=== PATIENT | male | born 1960 | race Caucasian/White ===

== ENCOUNTER → 2019-06-10 13:58 | Outpatient (REF) | payer OTHER, SELFPAY | LOC: ANHLAB 13:58 | PROVIDERS: PCP Family Medicine; Visit Provider Nurse Practitioner | DX: C44.329 Squamous cell carcinoma of skin of other parts of face (principal) | CPT/HCPCS: 88305 ==

== ENCOUNTER → 2019-07-14 09:27 | Outpatient (REF) | payer OTHER, SELFPAY | LOC: ANHLAB 09:27 | PROVIDERS: PCP Family Medicine; Visit Provider Nurse Practitioner | DX: C44.329 Squamous cell carcinoma of skin of other parts of face (principal) | CPT/HCPCS: 88305; 88331 ==

== ENCOUNTER 2024-08-25 01:03 | Emergency (ER) | payer OTHER, SELFPAY ==
[2024-08-25] VITALS (9 sets, daily range): BP systolic 120–147; BP diastolic 73–90; PULSE 72–84; RESP 11–16; TEMP 36.5–36.7; O2SAT 97–99
--- NOTE | ~2024-08-25 | CT_ITS ---
Noncontrast CT scan of the right hip CLINICAL HISTORY: Status post fall technique: Axial noncontrast imaging of the right hip was performe d. Sagittal and coronal reformatted images were constructed. Dose reduction technique was used on thi s scan by utilizing automated exposure control and iterative reconstruction technique. The dose-lengt h product (DLP) was 144.99 mGy-cm. Findings: There is an acute, transverse, nondisplaced fracture isolated to the superior portion of th e right greater trochanter (coronal image 54-56 for best visualization). Orthopedic hardware at the p roximal right humerus related to prior ORIF of remote, healed fracture in this region. Right hip join t space is preserved with minimal degenerative spurring at the right femoral head neck junction. Visualized musculature is unremarkable. No soft tissue mass or hematoma evident. No joint effusion ev ident. There is extensive atherosclerotic calcification of the common femoral and femoral arteries, a s well as the visualized right iliac vessels. IMPRESSION: Acute, transverse, nondisplaced fracture isolated to the superior portion of the right greater trocha nter. Please see details above. Orthopedic hardware at the proximal right ureter from prior ORIF. No soft tissue mass or hematoma seen. Case discussed with Dr. Irving the time of this reading. Extensive atherosclerotic disease, as above. Reviewed, dictated and finalized at location . IMPRESSION: Acute, transverse, nondisplaced fracture isolated to the superior portion of th e right greater trochanter. Please see details above. Orthopedic hardware at the proximal right ureter from prior ORIF. No soft tissue mass or hematoma seen. Case discussed with Dr. Irving the time of this reading. Extensive atherosclerotic disease, as above.
--- NOTE | ~2024-08-25 | XR_ITS ---
AP view of the pelvis and AP and lateral views of the right hip Clinical history: Pain Findings: No acute fracture or dislocation is seen. Status post prior ORIF of the proximal right femu r. Osseous alignment is anatomic. Bilateral hip joint spaces are preserved. There is moderate degener ative change of bilateral SI joints. Soft tissues are unremarkable. Impression: No acute abnormality. Prior ORIF of the proximal right femur. Moderate degenerative change of the bilateral SI joints. Reviewed, dictated and finalized at location . Impression: No acute abnormality. Prior ORIF of the proximal right femur. Moderate degenerative change of the bilateral SI joints.
--- NOTE | ~2024-08-25 | CT_ITS ---
Noncontrast CT scan of the cervical spine Technique: Multiple contiguous axial [address] images of the cervical spine were obtained and rec onstructed in 2D sagittal and coronal planes on the acquisition scanner. Dose reduction technique was used on this scan by utilizing automated exposure control, adjustment of the mA and/or kV according to patient size. The dose-length product (DLP) was 197.19 mGy-cm. Clinical History: Pain Findings: No fractures or dislocations. Unremarkable visualized bony structures. There is moderate to advanced degenerative disc narrowing at C4-C5 and C5-C6. There is bilateral neural foraminal narro wing, right worse than left, at C4-C5 and C5-C6.. No prevertebral soft tissue swelling. Impression: No fracture or subluxation of the cervical spine. Degenerative changes C4-C5 and C5-C6, as detailed above. Reviewed, dictated and finalized at [facility]. Impression: No fracture or subluxation of the cervical spine. Degenerative changes C4-C5 and C5-C6, as detailed above.
--- NOTE | ~2024-08-25 | CT_ITS ---
Non-contrast Head CT History: Status post fall Technique: Axial non-contrast imaging of the brain was performed. Dose reduction technique was used on this scan by utilizing automated exposure control and iterative reconstruction technique. The dose -length product (DLP) was 605.33 mGy-cm. Findings: There is no evidence of intracranial hemorrhage, mass lesion, or acute infarct. Brain par enchyma appears normal. The ventricles and subarachnoid spaces are normal in size. The calvarium ap pears normal. The visualized paranasal sinuses and mastoid air cells are clear. Impression: No significant abnormality seen. Reviewed, dictated and finalized at location . Impression: No significant abnormality seen.
--- OUTSIDE RECORDS SUMMARY | 2024-08-25 03:09 | XMS_ITS | Encounter Summary ---
Author Organization [facility] Address [address] [place] [address] Care Team Providers Care Licensed Optician Name Role Phone Yohannes Nix MD Primary Care Provider [phone] Encounter Details Date Type Department Care Team (Late st Contact Info) Description 04/25/2023 Lab Requisition [facility] - DermPath Lab [address] [place] [address] Tanner Fairchild MD [address] [place] [address] Social History Tobacco Use Types Packs/Day Years Used Date Smoking Tobacco: Never Assessed Sex and Gender Information Value Date Recorded Sex Assigned at Not on file Legal 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 Gender Identity Not on file Sexual Orientation Not on file documented as of this encounter Plan of Treatment Not on file documented as of this encounter Procedures Procedure Name Priority Date/Time Associated Diagnosis Comments DERMATOPATHOLOGY Routine 04/24/2023 3:33 AM SECURITY NURSE documented in this encounter Results * DERMATOPATHOLOGY (04/24/2023 3:33 AM SECURITY NURSE) Case Report Dermatopathology Report Case: [id number] Authorizing Provider: Tanner Fairchild MD Collected: 04/24/2023 03:33 AM Ordering Location: [facility] Received: 04/25/2023 09:53 AM Pathologist: Cammy Guerrier MD Specimen: Skin, left religious 2:26 PM SECURITY NURSE DERMATOPATHOLOGY LABORATORY Final Diagnosis Specimen A. 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 Path# [id number] 2:26 PM [facility] DERMATOPATHOLOGY LABORATORY Gross Description Specimen A: Received is one formalin filled container labeled with the patient's name and designated left religious. The specimen consists of a shave biopsy measuring 6x5x2 mm. Jar 0. 2:26 PM [facility] DERMATOPATHOLOGY LABORATORY Microscopic Description Specimen A. SKIN, left religious: The epidermis shows parakeratosis, full thickness disorderly maturation of keratinocytes, mitoses at different levels, and dyskeratotic cells. In some foci, there is loss of cohesion between the neoplastic cells, as well as individual dyskeratotic cells that lack intercellular bridges. The lesion extends to the base of the biopsy. COMMENT: An invasive squamous cell carcinoma cannot be ruled out. 2:26 PM [facility] DERMATOPATHOLOGY LABORATORY Disclaimer An external and internal positive and negative controls are appropriate for the histochemical, immunohistochemical and immunofluorescence stain(s) in this case (if any), except where stated explicitly. The performance characteristics of the stain(s) cited in this report were developed and its performance characteristic determined by the Dermatopathology Laboratory at [facility], directed by Dr. Virginia Calhoun. These tests need not be, and therefore are not, approved by the [place] Food and Drug Administration. The tests are used for clinical purposes. Billing Codes Specimen Charges Stain Charges 44919 1 4 2:26 PM [facility] DERMATOPATHOLOGY LABORATORY Embedded Images 2:26 PM [facility] DERMATOPATHOLOGY LABORATORY Pathology/Cytolo gy TISSUE SPECIMEN FROM SKIN / Unknown 04/24/2023 3:33 AM SECURITY NURSE 04/25/2023 9:53 AM [facility] us Tanner Fairchild MD LAB - PATHOLOGY/CYTOLOGY ORDER VIRAJ Final Result DERMATOPATHOLOGY LABORATORY [facility] - Department of Dermatology [address] [place] [address], [facility] [phone] documented in this encounter Visit Diagnoses Not on filedocumented in this encounter Care Teams Licensed Optician Relationship Specialty Start Date End Date Yohannes Nix MD [address] [place] [address] PCP - General 03/14/18 documented as of this encounter
--- OUTSIDE RECORDS SUMMARY | 2024-08-25 03:09 | XMS_ITS | Clinical Summary ---
Author Organization [facility] Address [address] [place] [address] Care Team Providers Care Wax Blender Name Role Phone Yohannes Nix MD Primary Care Provider [phone] Source Comments [facility],non-owned Affiliates and Associated Physician Practices is amultiple site organization consisting of ambulatory clinics and hospital sitesin [place], [place], [place] and [place]. This disclosure is being madepursuant to the Care Everywhere program and may not contain all information available regarding this patient. 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 Gender Identity Not on file Sexual Orientation Not on file Plan of Treatment Health Maintenance Due Date Last Done Comments COLOGUARD (AGES 45-75) - COL ON CA SCREENING 1961 COLON MONITORING 1961 COLONOSCOPY - COLON CA SCREENING 1961 CT COLONOGRAPHY - COLON CA SCREENING 1961 Colorectal Cancer Screening 1961 FIT - COLON CA SCREENING 1961 FLEX SIG - COLON CA SCREENING 1961 LIPID TESTING 1961 HIV SCREENING 1976 HEPATITIS C SCREENING 04/14/1979 DTAP/TDAP/TD VACCINES (1 - Tdap) 1980 PNEUMOCOCCAL VACCINE 50+ (1 of 1 - PCV) 2011 ZOSTER VACCINE (1 of 2) 2011 COVID-19 VACCINE ( - 2023-2 5 season) 2023 DEPRESSION SCREENING 03/26/2024 INFLUENZA VACCINE (Season Ended) 2024 Respiratory Syncytial Virus (RSV) Vaccine Pt: or over 60 yrs (1 - 1-dose 75+ series) 2036 HEPATITIS B VACCINE Aged Out No longe r eligible based on patient's age to complete this topic HIB VACCINE Aged Out No longer eligi ble based on patient's age to complete this topic HPV VACCINE Aged Out No longer eligi ble based on patient's age to complete this topic MENINGOCOCCAL (Group B) VACC INE SHARED DECISION-MAKING Aged Out No longer eligibl e based on patient's age to complete this topic MENINGOCOCCAL GROUPS A/C/Y/W VACCINE Aged Out No longer eligible b ased on patient's age to complete this topic Insurance Care Teams Wax Blender Relationship Specialty Start Date End Date Yohannes Nix MD [address] [place], [place] [id number] PCP - General 03/14/18
--- NOTE | 2024-08-25 03:45 | ED.FALL ---
HPI - Fall General Chief Complaint: Fall Stated Complaint: RIGHT HIP PAIN S/P FALL Time Seen by Provider: 08/25/24 02:33 Source: patient, family and RN notes reviewed Mode of arrival: EMS Limitations: no limitations History of Present Illness HPI Narrative: Patient presents with report of right hip pain after a ground level fall. This was a mechanical fall as he states that he tripped over his own left leg. He states this sometimes occurs due to his history of neuropathy and persistent issues with his legs even after he has undergone stent for prior DVT. He states the pain in his hip feels like he had previously fractured at. Pain was initially 7 out 10 severity he which EMS administered 4 mg morphine and was 4/10 in severity. Pain is returning at the my assessment is 710 severity again. Patient can not recall dates and details previous surgical interventions. He denies any syncope or loss of consciousness. Denies hitting his head when he fell although he is on Elliquis for history of DVT. Related Data Home Medications ?Medication ?Instructions ?Recorded ?Confirmed ?Last Taken ?Type acetaminophen 325 mg capsule 325 mg PO Q6H PRN 11/09/21 Unknown History aspirin 81 mg tablet,delayed 81 mg PO DAILY 11/09/21 Unknown History release atorvastatin 20 mg tablet 20 mg PO DAILY 11/09/21 Unknown History docusate sodium 50 mg capsule 50 mg PO DAILY 11/09/21 Unknown History folic acid 1 mg tablet 1 mg PO DAILY 11/09/21 Unknown History hydrochlorothiazide 12.5 mg capsule 12.5 mg PO DAILY 11/09/21 Unknown History apixaban .ROUTE 08/25/24 Unknown History Allergies Allergy/AdvReac Type Severity Reaction Status Date / Time No Known Allergies Allergy Verified 11/09/21 12:59 [facility] Past Medical History Medical History History of DVT of lower extremity Neuropathy Heartburn Smoker Surgical History Surgical History History of vascular surgery stent for DVT [facility] Dr Medina 10/05/21 and 03/30/23 History of esophagogastroduodenoscopy (EGD) History of hip replacement 04/05/2018, Dr Grullon Family History Family History Father Family history of lung cancer, Onset Age: 69 Social History Social History Smoking status: Unknown if ever smoked Alcohol intake: current Alcohol use details: 4 drinks a day Substance use: never Exam Narrative: GENERAL: well-nourished, and in no acute distress. Appears older than stated age HEAD: Normocephalic, atraumatic. EYES: Non injected, non icteric ENT: Nares clear, no rhinorrhea or epistaxis. Gross auditory acuity intact. NECK: Supple. No meningismus. CHEST: Speaking in full sentences. No respiratory distress. HEART: Regular rate and rhythm. . ABDOMEN: Soft, nondistended. EXTREMITIES: No lower extremity edema. Pain when attempting to perform hip flexion to lift R leg off bed. Leg not rotated or shortened Pelvis: Pain over R hip. SKIN: Warm, dry, no rash. NEURO: No focal deficits. Alert and oriented. Answering questions. Following commands. Normal speech without aphasia or dysarthria. Sensation intact throughout RLE. PSYCH: Congruent mood and affect. Course Vital Signs Vital signs: Vital Signs Temperature 97.7 F 08/25/24 01:03 Pulse Rate 84 08/25/24 01:03 Respiratory Rate 16 08/25/24 01:03 Blood Pressure 147/90 H 08/25/24 01:03 Pulse Oximetry 98 08/25/24 01:03 Oxygen Delivery Room Air 08/25/24 01:03 Temperature 98.1 F 08/25/24 06:14 Pulse Rate 75 08/25/24 06:14 Respiratory Rate 13 08/25/24 06:14 Blood Pressure 137/73 08/25/24 06:14 Pulse Oximetry 97 08/25/24 06:14 Oxygen Delivery Room Air 08/25/24 01:03 MDM - Fall MDM Narrative Medical decision making narrative: Patient presents with right hip pain after a ground level fall in which he tripped. No loss of consciousness knee did not strike his head however he is Eliquis. In the emergency department he is afebrile with vital signs that are acceptable although with mild hypertension. Plain film x-ray negative for acute fracture issue on my independent interpretation however patient remains with a fair degree of pain and for this reason will proceed with CT imaging of the hip as well as the brain and C-spine given the fall occurred and he is taking anticoagulation. Patient initially stated he is still taking Elliquis even status post stent for DVT;; medication list states Xarelto . This medication was therefore reconciled but then he clarifies and confirms that this has been switched to Eliquis instead. Chart changed for this reason. CT Stat Rad negative as below. Therefore discharged in stable condition with prescriptions for multimodal pain management strategy excluding NSAIDs given he is on anticoagulation. Advised to follow-up with his orthopedic surgeon. ==== Patient discharged but at approximately 7am received phone call from radiologist regarding an over-read that does indicate a fracture is present. Patient had been in the waiting room awaiting a ride I did attempt to see if he was still present but his ride picked him up. I did attempt to call patient at 7:00 a.m. to notify him of this CT finding. 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 I discussed patient with on-call orthopedic surgeon Dr Georges who recommends patient be toe-touch weight-bearing with as little weight-bearing as possible for the 1st 6 weeks and use his walker. Will prescribe narcotic medications. I did attempt to call patient's son and was able to get a hold of him who was with the patient at the time. I was put on speaker phone and discussed with patient, son, another support person the findings on the CT scan and the plan for walker, weight-bearing status, and the need to follow-up with his orthopedic surgeon Dr. Grullon in 6 weeks. He verifies understanding. He was requesting Dr. Grullon's phone number and I read it to him again and noted that it was on his discharge instructions which he was able to see and [place]. We did note that his preferred pharmacy had been [facility] given this is a mail delivery service, I changed his 3 prescriptions to his preferred pharmacy which is [facility] in [place] and added narcotic medication. We discussed how to take his medications safely and I reiterated again not to use NSAIDs when his son asked about using ibuprofen. Patient will call Dr Grullon's office today or tomorrow to schedule 6 week follow up appointment. I indicated to the patient that I would change his discharge diagnoses to include this updated diagnosis. Differential Diagnosis Differential diagnosis: Likely compression fracture and other (Fracture, dislocation, bony contusion, hematoma/seroma, intracranial hemorrhage) Imaging Data Attestation: I personally reviewed and interpreted this imaging study as follows: My impression: No acute fracture dislocation. Hardware appears intact. There are calcifications of vascular structures on my independent interpretation of hip x-ray Radiologist's impression: CT C spine Stat Rad: No acute C-spine findings CT right hip Stat Rad: No acute displaced fracture CT Head Stat Rad: No acute intra-finding (sic) Impressions Hip/Pelvis X-Ray 08/25/24 06:33 Impression: No acute abnormality. Prior ORIF of the proximal right femur. Moderate degenerative change of the bilateral SI joints. Cervical Spine CT 08/25/24 06:52 Impression: No fracture or subluxation of the cervical spine. Degenerative changes C4-C5 and C5-C6, as detailed above. Head CT 08/25/24 06:53 Impression: No significant abnormality seen. Hip CT 08/25/24 06:53 IMPRESSION: Acute, transverse, nondisplaced fracture isolated to the superior portion of the right greater trochanter. Please see details above. Orthopedic hardware at the proximal right ureter from prior ORIF. No soft tissue mass or hematoma seen. Case discussed with Dr. Irving the time of this reading. Extensive atherosclerotic disease, as above. Discharge Plan Discharge Clinical Impression: Acute pain of right hip Fall Qualifiers: Encounter type: initial encounter Qualified Code(s): W19.XXXA - Unspecified fall, initial encounter Closed fracture of greater trochanter of right femur Qualifiers: Encounter type: initial encounter Fracture alignment: nondisplaced Qualified Code(s): S72.114A - Nondisplaced fracture of greater trochanter of right femur, initial encounter for closed fracture Patient Disposition: Home Condition: Stable Instructions: Antibiotic Form, Fall Prevention (ED), Hip Pain (ED) Additional Instructions: No broken bones in your neck/skull and no bleeding in the brain. No broken/dislocated hip - hardware appears intact. Acetaminophen/Tylenol is safe to take for pain, maximum 4000mg/day. Given you are still taking an anticoagulation medicine, NSAIDs such as ibuprofen/Motrin/Advil/naproxen are contraindicated. You can use the muscle relaxer and topical approaches prescribed though. If pain persists, follow-up with your primary care physician/orthopedic surgeon. Return to the emergency department with any new, worsening, or unmanaged symptoms. Patient Language: Nepali Prescriptions: New lidocaine 4 % adhesive patch,medicated 1 patch topical DAILY PRN (Reason: pain) Qty: 5 0RF acetaminophen 500 mg capsule 1,000 mg PO Q6H PRN (Reason: pain) Qty: 30 0RF methocarbamol 750 mg tablet 750 mg PO HS Qty: 7 0RF acetaminophen 500 mg capsule 1,000 mg PO Q6H PRN (Reason: pain) Qty: 30 0RF lidocaine 4 % adhesive patch,medicated 1 patch topical DAILY PRN (Reason: pain) Qty: 5 0RF methocarbamol 750 mg tablet 750 mg PO HS Qty: 7 0RF oxycodone 5 mg tablet 5 mg PO Q8H PRN (Reason: pain) Qty: 20 0RF No Action docusate sodium 50 mg capsule 50 mg PO DAILY atorvastatin 20 mg tablet 20 mg PO DAILY aspirin 81 mg tablet,delayed release (DR/EC) 81 mg PO DAILY hydrochlorothiazide 12.5 mg capsule 12.5 mg PO DAILY folic acid 1 mg tablet 1 mg PO DAILY acetaminophen 325 mg capsule 325 mg PO Q6H PRN apixaban [Eliquis] .ROUTE lisinopril 10 mg tablet See Rx Instructions .ROUTE .COMPLEX Qty: 90 3RF Dose Instruction: TAKE 1 TABLET BY MOUTH DAILY Rx Instructions: TAKE 1 TABLET BY MOUTH DAILY pantoprazole 40 mg tablet,delayed release (DR/EC) 40 mg PO BID Qty: 60 5RF Follow-up/Referrals: Kash Grullon MD [Physician] - (orthopedic surgeon) Olivia,Jose Olsen MD [Primary Care Provider] - Stand Alone Forms: Work/School Release IP Time of Disposition: 05:41
[2024-08-25] MEDS: MORPHINE SULFATE (*CRX) 4 MG/ML INJ IV PUSH (04:19)
== END 2024-08-25 06:24 | disposition home or self-care (01) ==
PROVIDERS: Emergency Provider Student in an Organized Health Care Education/Training Program; PCP Family Medicine
DX: S72.114A Nondisplaced fracture of greater trochanter of right femur, initial encounter for closed fracture (principal); Z86.718 Personal history of other venous thrombosis and embolism; G62.9 Polyneuropathy, unspecified; Z79.82 Long term (current) use of aspirin; W01.0XXA Fall on same level from slipping, tripping and stumbling without subsequent striking against object, initial encounter
CPT/HCPCS: 70450; 72125; 73502; 73700; 96374; 99284; J2270